=== PATIENT | male | born 1965 ===

== ENCOUNTER 2018-08-19 08:33 | Observation (INO) ==
[2018-08-19] MEDS ORDERED: ONDANSETRON 4 MG/2 ML VIAL IV PRN (11:20)
[2018-08-19] MEDS ORDERED: ACETAMINOPHEN 325 MG TABLET PO PRN (11:20)
[2018-08-19] MEDS ORDERED: SODIUM CHLORIDE 0.9% 1,000 ML IV SCH (11:30)
[2018-08-19 13:01] LABS: Calcium 7.4 MG/DL (8.5-10.1); Osmolality,Calculated 264.2 MOS/KG (273-304); Potassium 4.6 MMOL/L (3.5-5.1)
[2018-08-19 15:07] VITALS: BP 140/65
[2018-08-19] MEDS ORDERED: ENOXAPARIN 40 MG/0.4 ML SYRINGE SUBCUT SCH (21:00)
[2018-08-20] MEDS ORDERED: PANTOPRAZOLE 40 MG TABLET PO SCH (09:00)
== END 2018-08-19 16:27 | disposition home or self-care (01) ==
LOC: N.ICU 09:58 → INTOOBSV 09:58 → SUATTDRO 09:58
PROVIDERS: ADMIT Internal Medicine; ATTEND Internal Medicine